=== PATIENT | male | born 1990 | race Asian ===

== ENCOUNTER 2017-01-05 03:54 | Emergency (ER) | payer OTHER ==
[~2017-01-05] VITALS: Ht 177 cm; Wt 65.0 kg
[2017-01-05 03:59] VITALS: BP 130/83; TEMP 97.9
[2017-01-05 05:15] VITALS: PULSE 96
== END 2017-01-05 05:15 | disposition home or self-care (01) ==
LOC: COL.ER 03:54
DX: S01.312A Laceration without foreign body of left ear, initial encounter (principal); Z23 Encounter for immunization; W01.0XXA Fall on same level from slipping, tripping and stumbling without subsequent striking against object, initial encounter; Y92.410 Unspecified street and highway as the place of occurrence of the external cause

== ENCOUNTER 2017-01-12 15:45 | Emergency (ER) | payer OTHER ==
[2017-01-12 15:50] VITALS: BP 116/86; PULSE 68; TEMP 98.6
== END 2017-01-12 16:07 | disposition home or self-care (01) ==
LOC: COL.ER 15:45
DX: S01.81XD Laceration without foreign body of other part of head, subsequent encounter (principal); X58.XXXA Exposure to other specified factors, initial encounter